=== PATIENT | female | born 1955 ===

== ENCOUNTER → 2025-11-21 13:43 | Outpatient (BNVA) | payer MEDICARE, BC, SELFPAY | PROVIDERS: Visit Provider Internal Medicine Medical Oncology | DX: C20 Malignant neoplasm of rectum (principal); C78.7 Secondary malignant neoplasm of liver and intrahepatic bile duct; N82.3 Fistula of vagina to large intestine; Z93.2 Ileostomy status; Z87.891 Personal history of nicotine dependence; Z95.828 Presence of other vascular implants and grafts | CPT/HCPCS: 99205 ==